=== PATIENT | female | born 1980 | race Two or more races ===

== ENCOUNTER 2017-06-12 15:28 | Inpatient (IN) | payer OTHER ==
[~2017-06-12] VITALS: Ht 172.7 cm; Wt 3.6 kg
[2017-06-12] MEDS ORDERED: PRENATABS RX T1 EACH PO (17:11)
[2017-06-15] MEDS ORDERED: PERCOCET 5-3251 EACH PO (09:01)
== END 2017-06-15 10:57 | DRG 766 ==
LOC: OB/GYN 15:28 → LDR 15:28 → OB/GYN 06-13 01:06
PROVIDERS: Specialist
PROC: 4A1HXCZ Monitoring of Products of Conception, Cardiac Rate, External Approach (ICD-10-PCS; 2017-06-12)
PROC: 0UB90ZZ Excision of Uterus, Open Approach (ICD-10-PCS; 2017-06-13)
PROC: 10D00Z1 Extraction of Products of Conception, Low, Open Approach (ICD-10-PCS; principal; 2017-06-13 07:00)
DX: O33.5XX0 Maternal care for disproportion due to unusually large fetus, not applicable or unspecified (principal); O34.13 Maternal care for benign tumor of corpus uteri, third trimester; D25.9 Leiomyoma of uterus, unspecified; Z3A.40 40 weeks gestation of pregnancy; Z64.1 Problems related to multiparity; Z37.0 Single live birth; O69.81X0 Labor and delivery complicated by cord around neck, without compression, not applicable or unspecified; O48.0 Post-term pregnancy

== ENCOUNTER 2017-11-22 07:38 | Outpatient (CLI) | payer OTHER ==
[~2017-11-22 07:38] MED LIST: PERCOCET 5-3251 EACH PO; PRENATABS RX T1 EACH PO
== END 2017-11-22 07:44 | disposition home or self-care (01) ==
LOC: SONOGRAMA 07:38
DX: O20.0 Threatened abortion (principal)

== ENCOUNTER 2017-12-08 05:44 | Day surgery (SDC) | payer OTHER ==
[~2017-12-08] VITALS: Ht 172.7 cm; Wt 92.1 kg
== END 2017-12-08 17:20 | disposition home or self-care (01) ==
LOC: ER 05:44 → CIR.AMB 06:50
DX: O03.4 Incomplete spontaneous abortion without complication (principal)

== ENCOUNTER 2018-04-04 09:10 | Outpatient (CLI) | payer OTHER | END 2018-04-04 09:13 | disposition home or self-care (01) | LOC: SONOGRAMA 09:10 | DX: O20.0 Threatened abortion (principal) ==

== ENCOUNTER → 2019-10-15 | Outpatient (CLI) | payer OTHER | END | disposition home or self-care (01) | LOC: PRENATAL 09:00 | PROVIDERS: ATTEND Specialist | DX: O36.80X1 Pregnancy with inconclusive fetal viability, fetus 1 (principal) ==

== ENCOUNTER → 2019-11-25 | Outpatient (CLI) | payer OTHER | END | disposition home or self-care (01) | LOC: PRENATAL 08:30 | PROVIDERS: ATTEND Obstetrics & Gynecology Maternal & Fetal Medicine | DX: O98.512 Other viral diseases complicating pregnancy, second trimester (principal); O09.522 Supervision of elderly multigravida, second trimester; O35.3XX0 Maternal care for (suspected) damage to fetus from viral disease in mother, not applicable or unspecified; Z36.89 Encounter for other specified antenatal screening; Z3A.20 20 weeks gestation of pregnancy ==

== ENCOUNTER → 2020-01-27 | Outpatient (CLI) | payer OTHER | END | disposition home or self-care (01) | LOC: PRENATAL 07:53 | PROVIDERS: ATTEND Obstetrics & Gynecology Maternal & Fetal Medicine | DX: O26.843 Uterine size-date discrepancy, third trimester (principal); O09.523 Supervision of elderly multigravida, third trimester; O34.219 Maternal care for unspecified type scar from previous cesarean delivery; Z36.89 Encounter for other specified antenatal screening; Z3A.29 29 weeks gestation of pregnancy ==

== ENCOUNTER 2020-03-23 12:45 | Inpatient (IN) | payer OTHER ==
[~2020-03-23] VITALS: Ht 172.7 cm; Wt 3.6 kg
[2020-04-05] MEDS ORDERED: PERCOCET 5-3251 EACH PO (09:54)
== END 2020-04-05 12:01 | DRG 785 ==
LOC: O/R 04-03 05:37 → OB/GYN 04-03 05:37
PROVIDERS: ADMIT Specialist; ATTEND Specialist
PROC: 0UB70ZZ Excision of Bilateral Fallopian Tubes, Open Approach (ICD-10-PCS; 2020-04-03)
PROC: 4A1HXFZ Monitoring of Products of Conception, Cardiac Rhythm, External Approach (ICD-10-PCS; 2020-04-03)
PROC: 10D00Z1 Extraction of Products of Conception, Low, Open Approach (ICD-10-PCS; principal; 2020-04-03 09:15)
DX: O34.211 Maternal care for low transverse scar from previous cesarean delivery (principal); Z30.2 Encounter for sterilization; Z3A.39 39 weeks gestation of pregnancy; Z37.0 Single live birth